=== PATIENT | female | born 1985 | race Caucasian/White ===

== ENCOUNTER → 2016-06-18 | Outpatient (REF) | payer OTHER | LOC: M LAB REF 13:23 | PROVIDERS: ATTEND Advanced Practice Midwife | DX: Z34.83 Encounter for supervision of other normal pregnancy, third trimester (principal) ==

== ENCOUNTER 2016-07-04 12:53 | Inpatient (IN) | payer OTHER ==
[2016-07-04] VITALS (9 sets, daily range): BP systolic 129–156; BP diastolic 71–96
[~2016-07-04] VITALS: Ht 165.1 cm; Wt 100.0 kg
[2016-07-04] MEDS ORDERED: VALT500T PO (14:05)
[2016-07-04] MEDS ORDERED: MOM30SS PO (14:05)
[2016-07-04] MEDS ORDERED: PRENTAB9 PO (14:05)
--- NOTE | 2016-07-04 14:07 | HPE ---
DATE OF ADMISSION: 07/04/2016 Darline is a 31-year-old, 2, para 1-0-0-1, at 39 weeks gestation with an estimated date of confinement (EDC) of 07/11/2016 based on last menstrual period and confirmed by first trimester ultrasound. She presents to labor and delivery today for induction of labor per consult with Dr. Augusto Salazar for gestational hypertension. She denies regular contractions, vaginal bleeding and leakage of fluid. Her fetus has been active. care initiated at [facility] in the first trimester. 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 Current gestational hypertension with a history of gestational hypertension in prior . Family history of cystic fibrosis. OBSTETRICAL HISTORY: October 2013, at 38 weeks gestation, she had a spontaneous vaginal delivery following induction of labor for gestational hypertension, male fetus, 7 pounds 8 ounces. OB LABS: Blood type is AB positive, antibody screen negative, rubella immune, VDRL nonreactive. Urine culture no growth. Hepatitis B surface antigen negative. HIV negative. Hepatitis C antibody nonreactive. Gonorrhea and chlamydia negative. Declined all genetic serum screening markers. Gestational diabetic screening 127. GBS is negative. PAST MEDICAL HISTORY: Gestational hypertension. Seasonal allergies. Abnormal Pap smear. Childhood varicella. SURGERIES/PROCEDURES: Colposcopy. FAMILY HISTORY: High blood pressure, lupus, anxiety. SOCIAL HISTORY: The patient is . She is a nonsmoker. Denies alcohol and drug use. She has a history of HSV II and HPV. She denies any history of abuse physical, sexual and emotional. ALLERGIES: NO KNOWN DRUG ALLERGIES. CURRENT MEDICATIONS: Include: - Valtrex of 500 mg twice a day - vitamin OBJECTIVE: Vital signs have not been completely taken. Her blood pressure is 143/96 with a pulse of 107. She is alert and oriented times three. She is in no apparent distress. The heart rate is 150 with moderate variability, positive accelerations and no decelerations. There is no pattern of contractions. Her abdomen is gravid, cephalic presentation. Estimated weight approximately 8 pounds. Sterile vaginal exam: 2 cm dilated, 50% effaced and minus 3 station, very posterior and soft texture. ASSESSMENT: Intrauterine at 39 weeks gestation. heart rate category 1. Gestational hypertension. PLAN: Admit patient to labor and delivery. Labs, including a repeat pre-eclamptic profile. Out of bed ad adonay. Regular diet at this time. The patient does desire an epidural when she is in active labor. I do plan to start misoprostol 50 mcg by mouth every 4 hours for cervical ripening. I did review risks to induction of labor, including increased risk for section, failed induction, intolerance to labor. The patient and her had all their questions answered and do desire to proceed with induction of labor.
[2016-07-04 14:17] LABS: MEAN CORPUSCULAR HGB CONC 33.8 g/dl (32.0-36.5); MEAN CORPUSCULAR VOLUME 91.8 fl (80.0-96.0); RED CELL DISTRIBUTION WIDTH 14.4 % (11.5-14.5); WHITE BLOOD COUNT 9.1 K/mm3 (4.0-10.0)
[2016-07-04] MEDS: miSOPROStol 50 MCG 1/2 TAB (S0191) PO SCH ×2 (18:10→22:21)
[2016-07-04 20:05] LABS: ALT/SGPT 19 U/L (12-78); AST/SGOT 23 U/L (15-37); BILIRUBIN,TOTAL 0.4 MG/DL (0.2-1.0); CREATININE FOR GFR 0.64 MG/DL (0.55-1.02); GLOMERULAR FILTRATION RATE > 60.0 (>60); URIC ACID 3.7 MG/DL (2.6-6.0)
[2016-07-05] VITALS (57 sets, daily range): BP systolic 108–146; BP diastolic 63–96
[2016-07-05] MEDS ORDERED: miSOPROStol 100 MCG TAB (S0191) PO ONE ×2 (00:30→06:45)
[2016-07-05] MEDS ORDERED: valACYclovir HCL 500 MG TAB PO SCH (09:00)
[2016-07-05] MEDS ORDERED: LR 1,000 ML IV SCH (09:04)
[2016-07-05] MEDS ORDERED: OXYTOCIN DRIP 30 UNITS in APPROPRIATE DILUENT 1 EA IV SCH ×2 (09:15→20:11)
[2016-07-05 11:12] LABS: MEAN CORPUSCULAR HEMOGLOBIN 30.2 pg (27.0-33.0); MEAN CORPUSCULAR HGB CONC 33.4 g/dl (32.0-36.5); MEAN CORPUSCULAR VOLUME 90.2 fl (80.0-96.0); RED CELL DISTRIBUTION WIDTH 14.3 % (11.5-14.5); WHITE BLOOD COUNT 9.4 K/mm3 (4.0-10.0)
[2016-07-05] MEDS ORDERED: FENTANYL 2MCG/ML ROPIVACAINE 0.2% NACL 250 ML CADD As Ordered ONE (11:22)
[2016-07-05] MEDS ORDERED: diphenhydrAMINE INJ 50MG/ML VIAL (J1200) IV PRN (12:00)
[2016-07-05] MEDS ORDERED: ONDANSETRON 4MG/2ML VIAL (J2405) IV PRN (12:00)
[2016-07-05] MEDS ORDERED: ePHEDrine SULFATE 25 MG/5 ML(5MG/ML) SYRINGE IV PRN (12:00)
[2016-07-05] MEDS ORDERED: NALOXONE INJ 0.4 MG/1 ML VIAL (J2310) IV PRN (12:00)
[2016-07-05] MEDS ORDERED: LACTATED RINGER'S 1000 ML IV PRN (12:00)
[2016-07-05] MEDS ORDERED: EPIDURAL COMMENT XX SCH (12:00)
[2016-07-05] MEDS ORDERED: FENTANYL/ROPIVACAINE/NACL CADD 250 ML EPIDURAL SCH (12:00)
[2016-07-05] MEDS ORDERED: EPIDURAL/PCA KEYS XX PRN (12:00)
[2016-07-05] MEDS ORDERED: REFRIGERATOR IV KEYS XX PRN (12:00)
[2016-07-05 19:05] LABS: CORD GAS ABE A -6.3; CORD GAS HCO3 A 22.3 MEQ/L; CORD GAS O2 SAT A 39.1 %; CORD GAS PH A 7.218 UNITS; CORD GAS PO2 A 19.4 mmHg
[2016-07-05 19:08] LABS: CORD GAS ABE V -8.4; CORD GAS HCO3 V 17.4 MEQ/L; CORD GAS O2 SAT V 71.2 %; CORD GAS PCO2 V 37.4 mmHg; CORD GAS PH V 7.286 UNITS; CORD GAS PO2 V 29.6 mmHg; CORD GAS SBC V 17.2 MEQ/L; CORD GAS TCO2 V 18.6 MEQ/L
[2016-07-05] MEDS ORDERED: DOCUSATE SODIUM 100 MG CAP PO PRN (20:15)
[2016-07-05] MEDS ORDERED: RHOGAM 300 MCG (1500 IU) INJ (J2790) IM SCH (20:15)
[2016-07-05] MEDS ORDERED: MEASLES,MUMPS,RUBELLA VACCINE INJ (MMR-II) (90707) SC SCH (20:15)
[2016-07-05] MEDS ORDERED: ANUSOL HC CREAM 30GM TOP PRN (20:15)
[2016-07-05] MEDS ORDERED: DIBUCAINE 1% OINTMENT 30GM TOP PRN (20:15)
--- NOTE | 2016-07-05 20:28 | DN ---
DATE: 07/05/2016 Darline is a 31-year-old 2, para 2-0-0-2 now, who was admitted to labor and delivery for induction of labor due to gestational hypertension. Intravenous (IV) Pitocin was utilized. Labor did ensue. She used an epidural for her labor coping. She progressed to full dilation at 1819. She pushed to a spontaneous vaginal delivery of a live male infant in occiput anterior (OA) position with restitution to left occiput transverse (LOT) position at 1845. There was no nuchal cord. The shoulders delivered Jermaine maneuver and gentle downward guidance. Corpus immediately followed. [place] was placed on maternal abdomen crying and active. Bulb suctioned mouth and nares. The cord was clamped times two and cut by myself. Cord blood and cord gases were obtained. Spontaneous expulsion of an intact placenta with three-vessel cord by Green mechanism was at 1857. Uterine hemostasis achieved with IV Pitocin rapid infusion and uterine fundal massage. Estimated blood loss 300 mL. Perineum and vagina inspected. Noted to have a first-degree midline laceration that was easily repaired with 3-0 Rapide in the usual fashion. [place] male weighed 4060 grams, 8 pounds 15 ounces, scores 8 and 9. The family have named their son Santiago mom plans to breastfeed. At the close of delivery, needle counts, lap counts and instrument counts were correct and verified.
[2016-07-05] MEDS: IBUPROFEN 800 MG TAB PO PRN (21:30)
[2016-07-06] MEDS: ACETAMINOPHEN 500 MG TAB PO PRN ×2 (04:28→17:51)
[2016-07-06 05:33] VITALS: BP 116/59
[2016-07-06] MEDS: PRENATAL VITAMIN TAB PO SCH (08:59)
[2016-07-06] MEDS: IBUPROFEN 800 MG TAB PO PRN ×2 (11:41→22:56)
[2016-07-06 18:00] VITALS: BP 117/58
[2016-07-07 06:20] VITALS: BP 118/74
[2016-07-07] MEDS: PRENATAL VITAMIN TAB PO SCH (08:50)
[2016-07-07] MEDS ORDERED: ACET50TA PO (09:19)
[2016-07-07] MEDS ORDERED: IBUP-1114 PO (09:19)
== END 2016-07-07 09:55 | disposition home or self-care (01) | DRG 775 ==
LOC: M LDI 12:53 → M OBS 07-05 21:10
PROVIDERS: ADMIT Advanced Practice Midwife; ATTEND Advanced Practice Midwife
PROC: 3E0DXGC Introduction of Other Therapeutic Substance into Mouth and Pharynx, External Approach (ICD-10-PCS; 2016-07-04)
PROC: 3E033VJ Introduction of Other Hormone into Peripheral Vein, Percutaneous Approach (ICD-10-PCS; 2016-07-04)
PROC: 10E0XZZ Delivery of Products of Conception, External Approach (ICD-10-PCS; principal; 2016-07-05)
PROC: 0HQ9XZZ Repair Perineum Skin, External Approach (ICD-10-PCS; 2016-07-05)
DX: O13.4 Gestational [pregnancy-induced] hypertension without significant proteinuria, complicating childbirth (principal); Z37.0 Single live birth; Z3A.39 39 weeks gestation of pregnancy; O70.0 First degree perineal laceration during delivery

== ENCOUNTER → 2018-04-07 | Outpatient (CLI) | payer OTHER ==
[~2018-04-07] MED LIST: IBUP-1114 PO; MAPA500T2 PO; MOM30SS PO; PRENTAB9 PO; VALT500T PO
--- NOTE | 2018-04-07 15:41 | REP ---
Clinical: Cough. Technique: PA and lateral. Findings: Subtle right basilar infiltrate possibly involving the right middle lobe noted. No effusion. No pneumothorax. Mediastinum and cardiac silhouette are normal. Skeletal structures are intact. Impression: Subtle right basilar infiltrate compatible with acute pneumonia. Follow-up recommended. Electronically Signed by Catalino Cho MD 04/07/2018 03:33 P
== END ==
LOC: M RAD 14:31
PROVIDERS: ATTEND Physical Medicine & Rehabilitation
DX: R05 Cough (principal); R91.8 Other nonspecific abnormal finding of lung field

== ENCOUNTER → 2019-02-17 | Outpatient (REF) | payer OTHER | LOC: M LAB REF 19:33 | PROVIDERS: ATTEND Advanced Practice Midwife | DX: Z12.4 Encounter for screening for malignant neoplasm of cervix (principal) | CPT/HCPCS: 87624; G0123 ==

== ENCOUNTER → 2020-10-08 | Outpatient (REF) | payer OTHER | LOC: M SFHCWAGY 13:37 | PROVIDERS: ATTEND Advanced Practice Midwife | DX: Z12.4 Encounter for screening for malignant neoplasm of cervix (principal) ==

== ENCOUNTER → 2021-08-15 | Outpatient (REF) | payer OTHER | LOC: M PLALAB 08:48 | PROVIDERS: ATTEND Advanced Practice Midwife | DX: Z53.20 Procedure and treatment not carried out because of patient's decision for unspecified reasons (principal) ==

== ENCOUNTER → 2023-06-25 | Outpatient (REF) | payer OTHER | LOC: M SFHCWAGY 13:15 | PROVIDERS: ATTEND Advanced Practice Midwife | DX: Z12.4 Encounter for screening for malignant neoplasm of cervix (principal) | CPT/HCPCS: 87624; G0123 ==

== ENCOUNTER → 2024-06-26 | Outpatient (REF) | payer OTHER ==
[2024-06-28 11:08] LABS: HPV APTIMA Not Detected (Not Detected)
== END ==
LOC: M SFHCWAGY 10:29
PROVIDERS: ATTEND Advanced Practice Midwife
DX: Z12.4 Encounter for screening for malignant neoplasm of cervix (principal)
CPT/HCPCS: 87624; G0123